=== PATIENT | female | born 1995 | race Two or more races ===

== ENCOUNTER 2021-06-13 09:00 | Emergency (ER) | payer OTHER ==
[~2021-06-13] VITALS: Ht 172.7 cm; Wt 114.8 kg
--- NOTE | 2021-06-13 09:12 | NUR ---
PT TO ROOM 23 W/ C/O L KNEE PAIN AFTER PT STATES SHE WAS AT WORK AND SHE WENT TO HELP A RESIDENT AND THERE WAS WATER LEFT OF THE FLOOR AND PT SLIPPED AND HER L KNEE POPPED OUT OF PLACE. PT STATES SHE ATTEMPTED TO POP IT BACK INTO PLACE AND HAS HAD PAIN SINCE. PT STATES SHE ATTEMPTED TO ICE HER KNEE AND KEEP IT ELEVATED. STATES SWELLING HAS DECREASED. PT RESTING ON GURNEY. NADN. MONITORS APPLIED. VSS. WARM BLANKET PROVIDED. CALL LIGHT IN REACH.
[2021-06-13] MEDS ORDERED: IBUPROFEN 600 MG TABLET PO ONE (09:30)
[2021-06-13] MEDS ORDERED: IBUPROFEN 600 MG TABLET ONE (09:47)
[2021-06-13 10:09] VITALS: BP 108/59
--- NOTE | 2021-06-13 10:09 | NUR ---
PT CHART REVIEWED AND PLACED FOR RECHECK.
--- NOTE | 2021-06-13 10:09 | NUR ---
PT RESTING ON GURNEY. NADN. VERGARA.
== END 2021-06-13 10:41 | disposition home or self-care (01) ==
LOC: ED 10:29
DX: S83.422A Sprain of lateral collateral ligament of left knee, initial encounter (principal); X58.XXXA Exposure to other specified factors, initial encounter; Y93.89 Activity, other specified; Y92.69 Other specified industrial and construction area as the place of occurrence of the external cause; Y99.0 Civilian activity done for income or pay
CPT/HCPCS: 29505; 99283